=== PATIENT | male | born 2000 | race Caucasian/White ===

== ENCOUNTER 2025-01-18 09:31 | Emergency (ER) | payer BC, SELFPAY ==
--- NOTE | 2025-01-18 | ECG_ITS ---
Test Reason : CHEST PAIN Blood Pressure : */* mmHG Vent. Rate : 63 BPM Atrial Rate : 63 BPM P-R Int : 140 ms QRS Dur : 94 ms QT Int : 402 ms P-R-T Axes : 71 39 54 degrees QTcB Int : 411 ms Normal sinus rhythm Normal ECG No previous ECGs available Referred By: Generic ED Physician Electronically Signed By: Bib Juarez
--- NOTE | ~2025-01-18 | XR_ITS ---
EXAMINATION: XR CHEST CLINICAL INFORMATION: chest pain COMPARISON: None available. TECHNIQUE: 2 views of the chest were obtained. FINDINGS: No consolidation, pleural effusion or pneumothorax. Cardiomediastinal silhouette size is normal. Osseous structures are intact. XR/XR chest 2V IMPRESSION: Normal chest x-ray. Electronically signed by: Lex Mchugh MD 01/18/2025 10:55 AM EDT
[2025-01-18 09:46] VITALS: BP 121/79; PULSE 66; RESP 18; TEMP 36.5; O2SAT 99; BMI 13.0
[2025-01-18 10:01] LABS: MANUAL DIFF FLAG NO
[2025-01-18 10:02] LABS: Basophils Percent Auto 0.5 % (0-2); Eosinophils Absolute Auto 0.2 X10*3/uL (0.0-0.4); Eosinophils Percent Auto 3.5 % (0-4); Hematocrit 43.7 % (42.0-52.0); Hemoglobin 15.1 g/dl (14.0-18.0); Imm Gran Abs Auto 0.01 X10*3/uL (0.00-0.03); Imm Gran Pct Auto 0.2 % (0.0-0.4); Lymphocytes Absolute Auto 1.5 X10*3/uL (1.2-4.9); Lymphocytes Percent Auto 23.5 % (20-40); Mean Corpuscular HGB Conc 34.6 g/dl (31.0-36.0); Mean Corpuscular Hemoglobin 30.1 pg (27.0-33.0); Mean Corpuscular Volume 87.2 fL (80.0-98.0); Mean Platelet Volume 9.6 fL (9.4-12.4); Monocytes Absolute Auto 0.5 X10*3/uL (0.1-1.2); Monocytes Percent Auto 7.1 % (2-11); Neutrophils Absolute Auto 4.2 x10*3/uL (2.0-8.3); Neutrophils Percent Auto 65.2 % (45-73); Platelet Count 193 X10*3/uL (160-400); Red Blood Count 5.01 X10*6/uL (4.60-5.80); Red Cell Distribution Width 11.9 % (11.0-16.0); White Blood Count 6.5 X10*3/uL (4.8-10.8)
[2025-01-18 10:16] LABS: Anion Gap 13 (12-20); Blood Urea Nitrogen 7 mg/dL (9-16); Calcium 9.5 mg/dL (8.4-10.2); Carbon Dioxide 29 mmol/L (22-29); Chloride 105 mmol/L (96-108); Creatinine Clr Calc Pharmacy 118.3; Estimated Glomerular Filt Rate > 60; Glucose Random 96 mg/dL (60-115); Potassium 3.6 mmol/L (3.3-5.1); Sodium 143 mmol/L (135-145)
[2025-01-18 10:25] LABS: Troponin-I High Sensitivity < 2.7 ng/L (<3.5-35.0)
--- NOTE | 2025-01-18 10:50 | ED_ITS ---
HPI - Chest Pain General Chief Complaint: Chest Pain Stated Complaint: Chest Pain- Pain Going Down To L Arm, Loss of Slee Time Seen by Provider: 01/18/25 10:19 Source: patient Mode of arrival: ambulatory Limitations: no limitations History of Present Illness ED Provider: Neeraj Jefferson PA-C HPI narrative: 24-year-old male presents to the ER from urgent care for evaluation of chest pain that started yesterday morning. patient states he woke up with aching chest pain in his left chest and left upper arm that started yesterday morning. He was doing pushups a couple of hours before then. He states the pain persisted today and he went to urgent care. He was sent here for cardiac evaluation. He reports the pain is aching in nature. It is worse with palpation of the left chest wall. He denies any shortness of breath, nausea, diaphoresis. no history of sudden cardiac in his family MD complaint: chest pain Onset (ago): day(s) (1) Timing of current episode: constant Prior episodes: No Onset: during rest Pain location: left chest Pain radiation: left arm Severity: moderate Quality: aching Relieving factors: rest Exacerbating factors: palpation and movement Treatment prior to arrival: none Related Data Allergies Allergy/AdvReac Type Severity Reaction Status Date / Time No Known Allergies Allergy Verified 01/18/25 09:49 Review of Systems 2 Review of Systems: Yes all other systems are reviewed and are negative [facility] Social History Social History Advance Directives: No Advance Directives Information Provided: Yes Do you have a plan to hurt others: No Plan Physical Exam 2 Vital Signs: Vital Signs: Last Vital Signs Temp 98.1 F 01/18/25 11:12 Pulse 97 01/18/25 11:12 Resp 18 01/18/25 11:12 BP 101/80 01/18/25 11:12 Pulse Ox 97 01/18/25 11:12 O2 Del Method Room Air 01/18/25 11:12 BMI result Body Mass Index 13.0 Appearance: Alert. Oriented X3. No acute distress. Head: normocephalic, atraumatic. Eyes: Pupils equal, round and reactive to light. ENT: Pharynx normal. No tonsillar swelling or exudate. Neck: Normal inspection. Neck supple. CVS: Normal heart rate and rhythm. Pulses normal. Respiratory: No respiratory distress. Breath sounds normal. anterior chest wall tenderness superiorly. Abdomen: Soft and nontender. +BS x4 Skin: Skin warm and dry. Normal skin color. Normal skin turgor. No rashes. Extremities: No lower extremity edema. No joint swelling. Neuro/psych: Oriented X 3. Grossly normal, nonfocal. Normal speech and cognition. Medical Decision Making Medical Decision Making [facility] Narrative: 24-year-old male with no medical history presents to the ER for evaluation of left upper chest pain, left upper arm pain that started yesterday morning. He was doing pushups prior to pain starting. He arrived from urgent care to rule out cardiac etiology. His vital signs are stable. EKG reviewed, no ischemic changes. chest x-ray is normal. Labs are reassuring, negative troponin. Examination most consistent with muscular strain and spasm. Advised NSAIDs, rest and supportive care. Stable for discharge home. Patient agrees with plan. All questions were answered. Differential Diagnosis Differential Diagnoses: The differential diagnosis associated with the presentation includes muscular pain, costochondritis, bronchitis, low suspicion for ACS or PE Admission/Observation Consideration of admission/observation: Escalation of care including admission/observation considered Lab Data [facility] Lab Attestation statement: I reviewed the patient's lab results. Negative troponin 01/18/25 09:56 01/18/25 09:56 Labs: Lab Results 01/18/25 Range/Units 09:56 WBC 6.5 (4.8-10.8) X10*3/uL RBC 5.01 (4.60-5.80) X10*6/uL Hgb 15.1 (14.0-18.0) g/dl Hct 43.7 (42.0-52.0) % MCV 87.2 (80.0-98.0) fL MCH 30.1 (27.0-33.0) pg MCHC 34.6 (31.0-36.0) g/dl RDW 11.9 (11.0-16.0) % Plt Count 193 (160-400) X10*3/uL MPV 9.6 (9.4-12.4) fL Immature Gran % (Auto) 0.2 (0.0-0.4) % Neut % (Auto) 65.2 (45-73) % Lymph % (Auto) 23.5 (20-40) % [place] % (Auto) 7.1 (2-11) % Eos % (Auto) 3.5 (0-4) % Baso % (Auto) 0.5 (0-2) % Lymph # (Auto) 1.5 (1.2-4.9) X10*3/uL [place] # (Auto) 0.5 (0.1-1.2) X10*3/uL Eos # (Auto) 0.2 (0.0-0.4) X10*3/uL Baso # (Auto) 0.0 (0.0-0.2) X10*3/uL Abs Immat Gran (auto) 0.01 (0.00-0.03) X10*3/uL Absolute Neuts (auto) 4.2 (2.0-8.3) x10*3/uL Absolute Nucleated RBC 0.000 (0.0-0.012) X10*3/uL Nucleated RBC % (auto) 0.0 (0.0-0.2) /100WBC Sodium 143 (135-145) mmol/L Potassium 3.6 (3.3-5.1) mmol/L Chloride 105 (96-108) mmol/L Carbon Dioxide 29 (22-29) mmol/L Anion Gap 13 (12-20) BUN 7 L (9-16) mg/dL Creatinine 0.81 (0.5-1.4) mg/dL Estim Creat Clear Calc 118.3 Estimated GFR > 60 Random Glucose 96 (60-115) mg/dL Calcium 9.5 (8.4-10.2) mg/dL Troponin I High Sens < 2.7 (<3.5-35.0) ng/L Independent Interpretation I performed an independent interpretation of an: EKG and Plain X-Ray Interpretation: EKG with normal sinus rhythm, ventricular rate 63 beats per minute, normal MN interval, normal QTC, no ST segment elevations or depressions chest x-ray is clear, full expansion, no pneumothorax, no focal infiltrate or effusion Radiology Impression Discussion of test interpretation with radiology: I have reviewed the radiologist's reading. Independent Historian Clinical information obtained from an independent historian. History obtained from or confirmed by: Spouse External Record Review External record reviewed: Other ( urgent care) Tests considered The following testing was considered but not selected: CTA considered, PERC negative, low suspicion for PE Prescription Management I considered prescription management with: Pain Medication Critical Care Time Critical Care Time Critical Care Time: No Discharge Plan Discharge Clinical Impression: Muscular chest pain Patient Disposition: Home, Self-Care Instructions: Chest Wall Pain (ED) Additional Instructions: Your workup today showed a normal chest x-ray, normal EKG, normal blood work, including negative heart enzyme. Your exam and history are most consistent with muscle pain in your chest. Recommend NSAIDs such as ibuprofen, Aleve for muscle pain. Rest, no strenuous activity until pain is completely resolved. Follow-up with your doctor. If you develop new or worsening symptoms call 911 or come back to the ER for further evaluation. Interventions: ED Discharge Assessment Last Done: 01/18/25 11:12 Discharge Date/Time: 01/18/25 11:13 Print Language: Nigerien
[2025-01-18 11:10] VITALS: BP 101/80; PULSE 97; RESP 18; TEMP 36.7; O2SAT 97
[2025-01-18 11:12] VITALS: BP 101/80; PULSE 97; RESP 18; TEMP 36.7; O2SAT 97
--- OUTSIDE RECORDS SUMMARY | 2025-01-18 12:06 | XMS_ITS | Patient Health Record ---
Author Organization [facility] Address [address] [place] [address] Care Team Providers Care Production Estimator Name Role Phone Jose Alfredo Lu Primary Care Provider Jose Alfredo Friedman DO Unavailable Unavaila ble Reason For Referral No Information Immunizations Vaccine Route Administration Date Status Comme nts HPV Gardasil 9 FFS W/Counseling IM Intramuscular 08/12/2017 Administered HPV Gardasil 9 FFS W/Counseling IM Intramuscular 09/15/2017 Administered HPV Gardasil 9 FFS W/Counseling IM Intramuscular 02/10/2018 Administered Menactra FFS IM Intramuscular 08/12/2017 Administered Social History Tobacco use other than smoking: Question Answer Notes Are you an other tobacco user? 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 Plan Of Treatment No Information Insurance Providers Payer Name Payer Address Payer Phone Subscriber Number Group Number Insured Name Patient Relationship to Insured Coverage Start Date Coverage End Date Medicaid [address] [place] [address] [id number] Gentry Jacome Self - patient is the insured [facility] [employer] [address] [address] [place], [place] [id number] AnabelGentry vega Self - patient is the insured 7 7 [facility] [address] [place] [phone] [id number] Anabel s, Gentry Self - patient is the insured 8 8 [facility] [address] [address] [place] [address] [phone] [id number] Mukul Jacomey Self - patient is the insured 8 9 Medical (General) History Surgical History Surgery Date(Month/Year) Feet webbing surgery as an infant bilateral hand webbing surgery x 2 as an infant Hospitalization History Reason Date(Month/Year) above surgeries
--- OUTSIDE RECORDS SUMMARY | 2025-01-18 12:06 | XMS_ITS | Clinical Summary ---
Author Organization [facility] Address [address] [place] [address] Care Team Providers Care Auto Servicer Name Role Phone Cisco Chavez MD Primary Care Provider [phone] Allergies No known active allergies Medications No known medications Active Problems No known active problems Social History Tobacco Use Types Packs/Day Years Used Date Smoking Tobacco: Never Smokeless Tobacco: Never Alcohol Use Standard Drinks/Week Comments No 0 (1 standard drink = 0.6 oz pur e alcohol) Sex and Gender Information Value Date Recorded Sex Assigned at Not on file Legal Sex Male 4:54 PM EDT Gender Identity Not on file Sexual Orientation Not on file Last Filed Vital Signs Vital Sign Reading Time Taken Comments Blood Pressure 129/71 01/17/2016 7:54 PM EDT Pulse 88 01/17/2016 7:54 PM EDT Temperature 36.7 ??C (98.1 ??F) 01/17/2016 7:54 PM ED T Respiratory Rate 20 01/17/2016 7:54 PM EDT Oxygen Saturation 100% 01/17/2016 7:54 PM EDT Inhaled Oxygen Concentration - - Weight 45.2 kg (99 lb 10.4 oz) 01/17/2016 7:54 P M EDT Height - - Body Mass Index - - Plan of Treatment Not on file Insurance Care Teams Auto Servicer Relationship Specialty Start Date End Date Cisco Chavez MD PCP - General 04/21/14
== END 2025-01-18 11:13 | disposition home or self-care (01) ==
PROVIDERS: Emergency Provider Emergency Medicine
DX: R07.89 Other chest pain (principal); M79.602 Pain in left arm; Z79.899 Other long term (current) drug therapy
CPT/HCPCS: 36415; 71046; 80048; 84484; 85025; 93005; 99283; 99284

== ENCOUNTER → 2025-01-18 09:36 | Outpatient (BNV) | payer BC, SELFPAY | PROVIDERS: Emergency Provider Emergency Medicine; Visit Provider Internal Medicine Cardiovascular Disease | DX: R07.9 Chest pain, unspecified (principal) | CPT/HCPCS: 93010 ==

== ENCOUNTER → 2025-01-18 10:20 | Outpatient (BNV) | payer BC, SELFPAY | PROVIDERS: Emergency Provider Emergency Medicine; Visit Provider Radiology Diagnostic Radiology | DX: R07.9 Chest pain, unspecified (principal) | CPT/HCPCS: 71046 ==